=== PATIENT | female | born 1995 | race Caucasian/White ===

== ENCOUNTER 2020-10-03 17:41 | Emergency (ER) | payer OTHER ==
[~2020-10-03] VITALS: Ht 172.7 cm; Wt 59.8 kg
[2020-10-03] MEDS ORDERED: BCP PO (17:51)
[2020-10-03 20:29] LABS: BASO % 0.6 % (0.0-1.0); EOS # 0.3 10^3/uL (0.0-0.5); EOS % 3.7 % (0.0-3.0); HEMATOCRIT 45.3 % (36.0-47.0); HEMOGLOBIN 15.3 g/dl (12.0-15.5); LYMPH # 2.8 10^3/uL (1.5-5.0); LYMPH % 41.8 % (24.0-44.0); MEAN CORPUSCULAR HEMOGLOBIN 31.1 pg (27.0-33.0); MEAN CORPUSCULAR HGB CONC 33.8 g/dl (32.0-36.5); MEAN CORPUSCULAR VOLUME 92.1 fl (80.0-96.0); MONO # 0.5 10^3/uL (0.0-0.8); MONO % 6.6 % (0.0-5.0); NEUTROPHILS # 3.2 10^3/uL (1.5-8.5); PLATELET COUNT, AUTOMATED 201 10^3/uL (150-450); RED BLOOD COUNT 4.92 10^6/uL (4.00-5.40); WHITE BLOOD COUNT 6.8 10^3/uL (4.0-10.0)
[2020-10-03 21:04] LABS: ALBUMIN 4.4 GM/DL (3.2-5.2); ALT/SGPT 16 U/L (12-78); BILIRUBIN,DIRECT 0.2 MG/DL (0.0-0.2); BILIRUBIN,TOTAL 0.9 MG/DL (0.2-1.0); CK-MB VALUE MASS < 1.0 NG/ML (<3.6); CPK CREATINE PHOSPHOKINASE 72 U/L (26-192); LIPASE 117 U/L (73-393); MB/CK RELATIVE INDEX 1.39 (< OR =4); TOTAL PROTEIN 8.4 GM/DL (6.4-8.2); TROPONIN I < 0.02 NG/ML (< 0.10)
--- NOTE | 2020-10-03 21:33 | REPVR ---
PROCEDURE INFORMATION: Exam: XR Chest, 2 Views Exam date and time: 10/03/2020 8:58 PM Age: 25 years old Clinical indication: Other: Chest pain TECHNIQUE: Imaging protocol: XR of the chest Views: 2 views. COMPARISON: No relevant prior studies available. FINDINGS: Lungs: Unremarkable. No consolidation. Pleural space: Unremarkable. No pleural effusion. No pneumothorax. Heart/Mediastinum: Unremarkable. No cardiomegaly. Bones/joints: Unremarkable. IMPRESSION: No acute findings. Electronically signed by: Joseph Tang On 10/03/2020 21:33:26 PM
--- NOTE | 2020-10-03 21:46 | ECGEPIP ---
[facility] - ED Test Date: 2020-10-03 Pat Name: KISHA PATRICIO Department: Room: - Gender: Female Safety Specialist: ALBERT : 1995 Requested By: SHAY SANABRIA PA-C Order Number: [id number] Reading MD: Pari Adams Measurements Intervals [place] Rate: 57 P: 0 [place]: 96 QRS: 101 QRSD: 104 T: 46 QT: 430 QTc: 421 Interpretive Statements SINUS BRADYCARDIA WITH SHORT [place] INTERVAL MARKED RIGHT AXIS DEVIATION INCOMPLETE RIGHT BUNDLE BRANCH BLOCK NO PRIOR Electronically Signed on 10-03-2020 21:46:23 EST by Pari Adams
[2020-10-03 23:26] VITALS: BP 119/79
[2020-10-06 17:08] LABS: Lyme Disease IgG/IgM Antibodie <0.91 ISR (0.00-0.90); Lyme Disease IgM Ab Quantitati <0.80 index (0.00-0.79)
== END 2020-10-03 23:20 | disposition home or self-care (01) ==
LOC: M ED 17:41
DX: R09.81 Nasal congestion (principal); R06.02 Shortness of breath; I45.10 Unspecified right bundle-branch block; I49.3 Ventricular premature depolarization; Z20.828 Contact with and (suspected) exposure to other viral communicable diseases; Z88.0 Allergy status to penicillin; Z79.3 Long term (current) use of hormonal contraceptives
CPT/HCPCS: 71046; 80047; 80076; 82550; 82553; 83690; 84484; 84702; 85025; 85379; 86617; 93005; 99284; U0003

== ENCOUNTER 2021-01-07 19:32 | Emergency (ER) | payer OTHER ==
[~2021-01-07] VITALS: Ht 170.2 cm; Wt 61.0 kg
[~2021-01-07 19:32] MED LIST: BCP PO
[2021-01-07 19:33] VITALS: BP 126/73
--- OUTSIDE RECORDS SUMMARY | 2021-01-07 19:40 | CCD ---
Author Author [facility] Organization [facility] Address Unknown Phone Unavailable Care Team Providers Care Auditing Specialist Name Role Phone Akira TREJO MD Unavailable Unavailable Akira TREJO MD Unavailable Unavailable Akira TREJO MD Unavailable Unavailable Akira TREJO MD Unavailable Unavailable Akira TREJO MD Unavailable Unavailable Akira TREJO MD Unavailable Unavailable Akira TREJO MD Unavailable Unavailable Akira TREJO MD Unavailable Unavailable Akira TREJO MD Unavailable Unavailable Akira TREJO MD Unavailable Unavailable Akira TREJO MD Unavailable Unavailable Akira TREJO MD Unavailable Unavailable Akira TREJO MD Unavailable Unavailable Akira TREJO MD Unavailable Unavailable Akira TREJO MD Unavailable Unavailable Akira TREJO MD Unavailable Unavailable Akira TREJO MD Unavailable Unavailable Akira TREJO MD Unavailable Unavailable Akira TREJO MD Unavailable Unavailable OBAkira LOZA MD Unavailable Unavailable OBAkira LOZA MD Unavailable Unavailable Akira TREJO MD Unavailable Unavailable OBAkira LOZA MD Unavailable Unavailable Akira TREJO MD Unavailable Unavailable Akira TREJO MD Unavailable Unavailable OBAkira LOZA MD Unavailable Unavailable OBAkira LOZA MD Unavailable Unavailable OBAkira LOZA MD Unavailable Unavailable OBAkira LOZA MD Unavailable Unavailable OBAkira LOZA MD Unavailable Unavailable OBAkira LOZA MD Unavailable Unavailable OBAkira LOZA MD Unavailable Unavailable OBAkira LOZA MD Unavailable Unavailable OBEN, T MEL MD Unavailable Unavailable OBEN, T MEL MD Unavailable Unavailable OBEN, T MEL MD Unavailable Unavailable OBEN, T MEL MD Unavailable Unavailable OBEN, T MEL MD Unavailable Unavailable OBEN, T MEL MD Unavailable Unavailable OBEN, T MEL MD Unavailable Unavailable OBEN, T MEL MD Unavailable Unavailable OBEN, T MEL MD Unavailable Unavailable OBEN, T MEL MD Unavailable Unavailable OBEN, T MEL MD Unavailable Unavailable OBEN, T MEL MD Unavailable Unavailable OBEN, T MEL MD Unavailable Unavailable OBEN, T MEL MD Unavailable Unavailable OBEN, T MEL MD Unavailable Unavailable OBEN, T MEL MD Unavailable Unavailable OBEN, T MEL MD Unavailable Unavailable OBEN, T MEL MD Unavailable Unavailable OBEN, T MEL MD Unavailable Unavailable OBEN, T MEL MD Unavailable Unavailable OBEN, T MEL MD Unavailable Unavailable OBEN, T MEL MD Unavailable Unavailable OBEN, T MEL MD Unavailable Unavailable OBEN, T MEL MD Unavailable Unavailable OBEN, T MEL MD Unavailable Unavailable OBEN, T MEL MD Unavailable Unavailable OBEN, T MEL MD Unavailable Unavailable OBEN, T MEL MD Unavailable Unavailable OBEN, T MEL MD Unavailable Unavailable OBEN, T MEL MD Unavailable Unavailable OBEN, T MEL MD Unavailable Unavailable OBEN, T MEL MD Unavailable Unavailable OBEN, T MEL MD Unavailable Unavailable OBEN, T MEL MD Unavailable Unavailable OBEN, T MEL MD Unavailable Unavailable OBEN, T MEL MD Unavailable Unavailable OBEN, T MEL MD Unavailable Unavailable OBEN, T MEL MD Unavailable Unavailable OBEN, T MEL MD Unavailable Unavailable OBEN, T MEL MD Unavailable Unavailable OBEN, T MEL MD Unavailable Unavailable OBEN, T MEL MD Unavailable Unavailable OBEN, T MEL MD Unavailable Unavailable OBEN, T MEL MD Unavailable Unavailable OBEN, T MEL MD Unavailable Unavailable OBEN, T MEL MD Unavailable Unavailable OBEN, T MEL MD Unavailable Unavailable OBEN, T MEL MD Unavailable Unavailable OBEN, T MEL MD Unavailable Unavailable OBEN, T MEL MD Unavailable Unavailable OBEN, T MEL MD Unavailable Unavailable OBEN, T MEL MD Unavailable Unavailable OBEN, T MEL MD Unavailable Unavailable OBEN, T MEL MD Unavailable Unavailable OBEN, T MEL MD Unavailable Unavailable OBEN, T MEL MD Unavailable Unavailable OBEN, T MEL MD Unavailable Unavailable OBEN, T MEL MD Unavailable Unavailable OBEN, T MEL MD Unavailable Unavailable OBEN, T MEL MD Unavailable Unavailable OBEN, T MEL MD Unavailable Unavailable OBEN, T MEL MD Unavailable Unavailable OBEN, T MEL MD Unavailable Unavailable OBEN, T MEL MD Unavailable Unavailable OBEN, T MEL MD Unavailable Unavailable OBEN, T MEL MD Unavailable Unavailable OBEN, T MEL MD Unavailable Unavailable OBEN, T MEL MD Unavailable Unavailable OBEN, T MEL MD Unavailable Unavailable OBEN, T MEL MD Unavailable Unavailable OBEN, T MEL MD Unavailable Unavailable OBEN, T MEL MD Unavailable Unavailable OBEN, T MEL MD Unavailable Unavailable Re-disclosure Warning The records that you are about to access may contain information from federally-assisted alcohol or drug abuse programs. If such information is present, then the following federally mandated warning applies: This information has been disclosed to you from records protected by federal confidentiality rules (42 CFR part 2). The federal rules prohibit you from making any further disclosure of this information unless further disclosure is expressly permitted by the written consent of the person to whom it pertains or as otherwise permitted by 42 CFR part 2. A general authorization for the release of medical or other information is NOT sufficient for this purpose. The Federal rules restrict any use of the information to criminally investigate or prosecute any alcohol or drug abuse patient.The records that you are about to access may contain highly sensitive health information, the redisclosure of which is protected by Article 27-F of the [facility] Public Health law. If you continue you may have access to information: Regarding HIV / AIDS; Provided by facilities licensed or operated by the [facility] Office of Mental Health; or Provided by the [facility] Office for People With Developmental Disabilities. If such information is present, then the following [facility] mandated warning applies: This information has been disclosed to you from confidential records which are protected by state law. State law prohibits you from making any further disclosure of this information without the specific written consent of the person to whom it pertains, or as otherwise permitted by law. Any unauthorized further disclosure in violation of state law may result in a fine or custodial sentence or both. A general authorization for the release of medical or other information is NOT sufficient authorization for further disc losure. Encounters Encounter Providers Location Date Indications Data Source(s ) Outpatient Attender: MEL TREJO MD 09/16/20 03:01:00 PM EST - 09/16/2020 03:01:00 PM EST [facility] Outpatient Attender: MEL TREJO MD Family Practice 08/12/2020 03:00:0 0 PM EDT [facility] ([facility]) Outpatient Attender: MEL TREJO MD 08/12/20 02:48:00 PM EDT - 08/12/2020 02:48:00 PM EDT [facility] Medications Medication Brand Name Start Date Product Form Dose Route Admi nistrative Instructions Pharmacy Instructions Status Indications Reaction Description Data Source(s) NITROFURANTOIN, MACROCRYSTALS 25 MG / Ni trofurantoin, Monohydrate 75 MG Oral Capsule [Macrobid] Macrobid 09/16/2020 12:00:00 AM EST ORAL active [facility] ([facility]) Insurance Providers Payer name Policy type / Coverage type Policy ID Covered republican ID Covered republican's relationship to johnson Policy Johnson Plan Information [facility] HUMANA [id number] 2 [id number] [place] [id number] S [id number] [place] [id number] 01 [id number] [facility] [place] [id number] 01 [id number] 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 [facility] 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 ID Date Data Source [id number] 09/16/2020 03:05:00 PM EST [facility] ([facility]) Name Value Range Interpretation Code Description Data Jaquelin rce(s) Supporting Document(s) Spec [place] 1.020 [facility] ([facility]) Color of Urine Laboratory test result [facility] ([facility]) Appearance of Urine Laboratory test result [facility] ([facility]) pH of Urine by Test strip 5 [facility] NT ([facility]) Protein [Presence] in Urine by Test strip Laboratory test result [facility] ([facility]) Nitrate [Presence] in Urine Laboratory test result [facility] ([facility]) Leukocytes Laboratory test result [facility] ([facility]) Urobilinogen Laboratory test result [facility] ([facility]) Inhouse Glucose Laboratory test result [facility] ([facility]) Ketones [Presence] in Urine by Test strip Laboratory test result [facility] ([facility]) Bilirubin.total [Presence] in Urine by Test strip Laboratory test res ult [facility] ([facility]) Blood type and Indirect antibody screen panel - Blood Laboratory test result [facility] ([facility]) ID Date Data Source [id number] 08/12/2020 03:26:00 PM EDT [facility] ([facility]) Name Value Range Interpretation Code Description Data Jaquelin rce(s) Supporting Document(s) Renal/Urinary Bladder Laboratory test result [facility] ([facility]) ID Date Data Source [id number] 08/12/2020 08:03:00 AM EDT [facility] ([facility]) Name Value Range Interpretation Code Description Data Jaquelin rce(s) Supporting Document(s) Color of Urine Laboratory test result [facility] ([facility]) Appearance of Urine Laboratory test result [facility] ([facility]) Spec [place] 1.020 [facility] ([facility]) pH of Urine by Test strip 5 [facility] NT ([facility]) Leukocytes Laboratory test result [facility] ([facility]) Inhouse Glucose Laboratory test result [facility] ([facility]) Protein [Presence] in Urine by Test strip Laboratory test result [facility] ([facility]) Nitrate [Presence] in Urine Laboratory test result [facility] ([facility]) Urobilinogen Laboratory test result [facility] ([facility]) Blood type and Indirect antibody screen panel - Blood Laboratory test result [facility] ([facility]) Ketones [Presence] in Urine by Test strip Laboratory test result [facility] ([facility]) Bilirubin.total [Presence] in Urine by Test strip Laboratory test res ult [facility] ([facility]) Procedure Vital Signs ID Date Data Source UNK Name Value Range Interpretation Code Description Data Source(s) Oxygen saturation in Arterial blood by Pulse oximetry 98 % 98 % [facility] ([facility]) Respiratory rate 22 /min 22 /min [facility] ( [facility]) Heart rate 81 /min 81 /min [facility] ([facility]) Diastolic blood pressure 75 mm[Hg] 75 mm[Hg] [facility] ([facility]) Systolic blood pressure 110 mm[Hg] 110 mm[Hg] M [facility] ([facility]) Body temperature 97.3 [degF] 97.3 [degF] [facility] ([facility]) Oxygen saturation in Arterial blood by Pulse oximetry 95 % 95 % [facility] ([facility]) Respiratory rate 20 /min 20 /min [facility] ( [facility]) Heart rate 72 /min 72 /min [facility] ([facility]) Diastolic blood pressure 83 mm[Hg] 83 mm[Hg] [facility] ([facility]) Systolic blood pressure 96 mm[Hg] 96 mm[Hg] M [facility] ([facility])
--- NOTE | 2021-01-07 20:52 | REPVR ---
PROCEDURE INFORMATION: Exam: XR Right Foot Exam date and time: 01/07/2021 7:52 PM Age: 25 years old Clinical indication: Pain; Foot; Right; Additional info: Pain, weight dropped on foot TECHNIQUE: Imaging protocol: XR Right foot. Views: 3 or more views. COMPARISON: No relevant prior studies available. FINDINGS: Bones/joints: No acute fracture or dislocation. Hallux valgus. Soft tissues: Unremarkable. IMPRESSION: No acute fracture or dislocation. Electronically signed by: Dinorah Anglin On 01/07/2021 20:52:44 PM
[2021-01-07] MEDS ORDERED: KETOROLAC 30 MG/ML 1ML VIAL IM ONE (22:00)
--- OUTSIDE RECORDS SUMMARY | 2021-01-07 22:11 | CCD ---
Author Author [facility] Organization [facility] Address Unknown Phone Unavailable Care Team Providers Care Mechanical Facilities Technician Name Role Phone Akira TREJO MD Unavailable [...] Unavailable Akira TREJO MD Unavailable Unavailable Akira TRJEO MD Unavailable Unavailable OBAkira LOZA MD Unavailable [...] is protected by Article 27-F of the [facility] Public Health law. If you continue you may have access to information: Regarding HIV / AIDS; Provided by facilities licensed or operated by the [facility] Office of Mental Health; or Provided by the [facility] Office for People With Developmental Disabilities. If such information is present, then the following [facility] mandated warning applies: This information has [...] law may result in a fine or [place] [facility] [place] sentence or both. A general authorization for the release of medical or other information is NOT sufficient authorization for further disc losure. Encounters Encounter Providers Location Date Indications Data Source(s ) Outpatient Attender: MEL TREJO MD 09/16/20 03:01:00 PM EST - 09/16/2020 03:01:00 PM EST [facility] Outpatient Attender: MEL TREJO MD Family Practice 08/12/2020 03:00:0 0 PM EDT [facility] ([facility]) Outpatient Attender: MEL TREJO MD 08/12/20 02:48:00 PM EDT - 08/12/2020 02:48:00 PM EDT [facility] Medications Medication Brand Name Start Date Product Form Dose Route Admi nistrative Instructions Pharmacy Instructions Status Indications Reaction Description Data Source(s) NITROFURANTOIN, MACROCRYSTALS 25 MG / Ni trofurantoin, Monohydrate 75 MG Oral Capsule [Macrobid] Macrobid 09/16/2020 12:00:00 AM EST ORAL active [facility] ([facility]) Insurance Providers Payer name Policy type / Coverage type Policy ID Covered constitution party ID Covered constitution party's relationship to johnson Policy Johnson Plan Information [facility] HUMANA [id number] 2 [id number] [place] [id number] S [id number] [place] [id number] 01 [id number] [facility] [place] [id number] 01 [id number] 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 and reported by [facility]. ID Date Data Source [id number] 09/16/2020 03:05:00 PM EST [facility] ([facility]) Name Value Range Interpretation Code Description Data Jaquelin rce(s) Supporting Document(s) Spec [place] 1.020 [facility] ([facility]) Color of Urine Laboratory test result [facility] ([facility]) Appearance of Urine Laboratory test result [facility] ([facility]) pH of Urine by Test strip 5 [facility] ([facility]) Protein [Presence] in Urine by Test strip Laboratory test result [facility] ([facility]) Nitrate [Presence] in Urine Laboratory test result [facility] ([facility]) Leukocytes Laboratory test result [facility]) Urobilinogen Laboratory test result [facility] ([facility]) Inhouse Glucose Laboratory test result [facility] ([facility]) Ketones [Presence] in Urine by Test strip Laboratory test result [facility] ([facility]) Bilirubin.total [Presence] in Urine by Test strip Laboratory test res ult [facility] ([facility]) Blood type and Indirect antibody screen panel - Blood Laboratory test result [facility] ([facility]) ID Date Data Source [id number] 08/12/2020 03:26:00 PM EDT [facility] ([facility]) Name Value Range Interpretation Code Description Data Jaquelin rce(s) Supporting Document(s) Renal/Urinary Bladder Laboratory test result [facility] ([facility]) ID Date Data Source [id number] 08/12/2020 08:03:00 AM EDT [facility] ([facility]) Name Value Range Interpretation Code Description Data Jaquelin rce(s) Supporting Document(s) Color of Urine Laboratory test result [facility] ([facility]) Appearance of Urine Laboratory test result [facility] ([facility]) Spec [place] 1.020 [facility] ([facility]) pH of Urine by Test strip 5 [facility] ([facility]) Leukocytes Laboratory test result [facility] ([facility]) Inhouse Glucose Laboratory test result [facility] ([facility]) Protein [Presence] in Urine by Test strip Laboratory test result [facility] ([facility]) Nitrate [Presence] in Urine Laboratory test result [facility] ([facility]) Urobilinogen Laboratory test result [facility] ([facility]) Blood type and Indirect antibody screen panel - Blood Laboratory test result [facility] ([facility]) Ketones [Presence] in Urine by Test strip Laboratory test result [facility] ([facility]) Bilirubin.total [Presence] in Urine by Test strip Laboratory test res ult [facility] ([facility]) Procedure Vital Signs ID Date Data Source UNK Name Value Range Interpretation Code Description Data Source(s) Oxygen saturation in Arterial blood by Pulse oximetry 98 % 98 % [facility] ([facility]) Respiratory rate 22 /min 22 /min [facility] ( [facility]) Heart rate 81 /min 81 /min [facility] ([facility]) Diastolic blood pressure 75 mm[Hg] 75 mm[Hg] [facility] ([facility]) Systolic blood pressure 110 mm[Hg] 110 mm[Hg] M [facility] ([facility]) Body temperature 97.3 [degF] 97.3 [degF] [facility] ([facility]) Oxygen saturation in Arterial blood by Pulse oximetry 95 % 95 % [facility] ([facility]) Respiratory rate 20 /min 20 /min [facility] ( [facility]) Heart rate 72 /min 72 /min [facility] ([facility]) Diastolic blood pressure 83 mm[Hg] 83 mm[Hg] [facility] ([facility]) Systolic blood pressure 96 mm[Hg] 96 mm[Hg] M [facility] ([facility])
== END 2021-01-07 23:08 | disposition home or self-care (01) ==
LOC: M ED 19:32
DX: S90.211A Contusion of right great toe with damage to nail, initial encounter (principal); Y93.9 Activity, unspecified; W22.8XXA Striking against or struck by other objects, initial encounter; Y92.9 Unspecified place or not applicable; Y99.9 Unspecified external cause status; Z88.1 Allergy status to other antibiotic agents; Z88.8 Allergy status to other drugs, medicaments and biological substances
CPT/HCPCS: 73630; 84702; 96372; 99282; J1885